=== PATIENT | female | born 1960 | race Caucasian/White ===

== ENCOUNTER 2017-07-10 13:07 | Observation (INO) ==
--- NOTE | 2017-07-10 13:34 | Emergency Department Note ---
Disposition Clinical Impression: Elevated d-dimer, Epigastric pain Chest pain Qualifiers: Chest pain type: unspecified Qualified Code(s): R07.9 - Chest pain, unspecified Disposition: Admitted As Inpatient Condition: Good Referrals: NONE,PCP [Primary Care Provider] - Forms: ED Satisfaction Letter General Adult HPI - General Chief complaint: ED Chest Pain Stated complaint: chest pain, abd pain Time Seen by Provider: 07/10/17 13:14 Source: patient Mode of arrival: ambulatory Limitations: no limitations Nursing Notes Reviewed: Yes Vital Signs Reviewed: Yes - History of Present Illness HPI Narrative: 56 y/o female who was visiting a relative in the ICU and developed epigastric abdominal pain along with dyspnea and chest pain radiating to the left arm. The pain is intermittent. She says she has a history of a heart attack, but she has not had a cath, or stents, or CABG. She says it was over 10 years ago. She says she developed CHF, but does not currently take any medications for it. She denies nausea/vomiting/diarrhea/constipation. No fever. No swelling or rashes. No hx of blood clots. She does not know her current medications. She does report history of cirrhosis of the liver. Location: lower extremity Pain Severity: moderate Pain Scale: 6 Consistency: intermittent Improves with: nothing Worsens with: nothing Associated symptoms: Reports: denies other symptoms Treatments Prior to Arrival: none - Related Data Home Medications Medication Instructions Recorded Confirmed Estrogen,Con/M-Progest Acet 1 each PO DAILY 04/05/15 04/05/15 [Prempro 0.3 mg-1.5 mg Tablet] Gabapentin [Neurontin] 1,200 mg PO TID 04/05/15 04/05/15 Levothyroxine [Synthroid] 50 mcg PO 0630 04/05/15 04/05/15 TraMADol [Ultram] 100 mg PO QID 04/05/15 04/05/15 Previous Rx's Medication Instructions Recorded Hydrocodone/Acetaminophen [[place] 1 each PO Q6H #10 tablet 04/05/15 5-325 Tablet] Ondansetron ODT [Zofran ODT] 4 mg PO Q6HR #10 tab.rapdis 07/07/15 Oxycodone HCl 5 mg PO Q6HR #15 capsule 07/07/15 Allergies Allergy/AdvReac Type Severity Reaction Status Date / Time aspirin [ASA] Allergy Hives Verified 07/07/15 16:08 Iodinated Contrast- Oral and Allergy Anaphylaxis Verified 07/10/17 13:12 IV Dye NSAIDS (Non-Steroidal AdvReac Difficulty Verified 04/05/15 01:09 Anti-Inflamma Breathing All systems ED: reviewed and negative except as stated. Constitutional: Denies: fever Eyes: Denies: vision change ENT ED: Denies: throat pain Cardiovascular: Reports: chest pain Respiratory: Reports: dyspnea. Denies: cough Gastrointestinal: Denies: abdominal pain Musculoskeletal: Denies: back pain Integumentary: Denies: rash Past Medical History - Past Medical History Medical history: Reports: arthritis, cancer, thyroid disease, other Surgical history: Reports: Psychiatric history: Reports: panic disorder - Social History Smoking Status: Former smoker Smokeless Tobacco Status: No Alcohol use: Reports: none Drug use: Reports: none Physical Exam - General General appearance: alert, in no apparent distress - Head Head exam: atraumatic - Eye Eye exam: Present: normal appearance, PERRL - ENT ENT exam: normal exam - Neck Neck exam: Present: normal inspection - Chest Chest inspection: Present: normal inspection - Respiratory Respiratory exam: Present: normal lung sounds bilaterally. Absent: respiratory distress - Cardiovascular Cardiovascular exam: Present: regular rate, normal rhythm - Abdominal Exam Abdominal exam: Present: soft, Non-Tender - Extremities Exam Extremities exam: Present: normal inspection - Back Exam Back exam: Present: normal inspection - Neurological Exam Neurological exam: Present: alert, oriented X3 - Skin Skin exam: Present: warm, dry Course Course Narrative: D dimer is elevated, however she has anaphylaxis to IV dye and a V/Q scan would need to be done in the morning after the reagent arrives. I will prophylactically give lovenox. In addition she has a mild lipase elevation with epigastric pain consistent with pancreatitis. LFT's are stable from where they have been. CT scan of the abdomen is negative for acute disease. No hx of ETOH use. Will admit for CP rule out and pancreatitis and r/o PE w/ V/Q scan in the ED. Spoke with Dr Ennis who accepted the patient for admission. Vital Signs Temperature 98.7 F 07/10/17 13:09 Pulse Rate 93 07/10/17 13:09 Respiratory Rate 16 07/10/17 13:09 Blood Pressure 125/83 07/10/17 13:09 O2 Sat by Pulse Oximetry 98 07/10/17 13:09 Temperature 98.7 F 07/10/17 13:09 Pulse Rate 87 07/10/17 18:39 Respiratory Rate 18 07/10/17 18:39 Blood Pressure 151/95 07/10/17 18:39 O2 Sat by Pulse Oximetry 95 07/10/17 18:39 Oxygen Delivery Oxygen Delivery Room Air Medical Decision Making - Medical Records Medical records reviewed: Yes I reviewed the patient's medical records. - Lab Data Lab results reviewed: Yes I reviewed the patient's lab results. Result diagrams: 07/10/17 13:35 07/10/17 13:35 Lab Results 07/10/17 07/10/17 07/10/17 Range/Units 13:35 13:35 13:35 WBC 6.4 (4.3-11.1) K/mcL RBC 3.49 L (3.82-4.97) M/mcL Hgb 10.9 L (11.5-15.4) g/dL Hct 34.1 L (35.3-44.9) % MCV 97.7 (83.0-100.0) fL MCH 31.2 (28.0-33.3) pg MCHC 32.0 (31.6-35.5) g/dL RDW 14.6 H (11.5-14.5) % Plt Count 112 L (140-400) K/mcL MPV 9.3 L (9.4-12.4) fL Immature Gran % 0.2 (0-4) % Seg Neutrophils % 28.7 % Lymphocytes % 50.9 % Monocytes % 11.5 % Eosinophils % 8.2 % Basophils % 0.5 % Neutrophils # 1.8 (1.6-8.9) K/mcL Lymphocytes # 3.2 (0.6-4.6) K/mcL Monocytes # 0.7 (0.0-1.3) K/mcL Eosinophils # 0.5 (0.0-0.6) K/mcL Basophils # 0.0 (0.0-0.2) K/mcL PT 12.8 H (9.4-12.1) Seconds INR 1.2 APTT 33.3 (26.0-36.0) Seconds D-Dimer 2491 H (0-500) ng/mLFEU Sodium (136-145) mEq/L Potassium (3.5-5.1) mEq/L Chloride (98-107) mEq/L Carbon Dioxide (23-29) mEq/L BUN (6-20) mg/dL Creatinine (0.60-1.20) mg/dL Est GFR ( Amer) (> 60) Est GFR (Non-Af Amer) (> 60) BUN/Creatinine Ratio (6-26) Glucose (70-105) mg/dL Calculated Osmolality (280-300) Lactic Acid (0.5-2.2) mmol/L Calcium (8.6-10.3) mg/dL Total Bilirubin (0.3-1.0) mg/dL Direct Bilirubin (0.0-0.2) mg/dL Indirect Bilirubin (0.0-1.2) mg/dL AST (13-39) Units/L ALT (7-52) Units/L Alkaline Phosphatase (34-104) Units/L Troponin I (< 0.04) ng/mL B-Natriuretic Peptide 27 (Less than 100) pg/mL Serum Total Protein (6.4-8.9) g/dL Albumin (3.5-5.7) g/dL Globulin (2.4-3.5) g/dL Albumin/Globulin Ratio (1.1-2.2) Lipase (11-82) Units/L Urine Color (Yellow) Urine Clarity (Clear) Urine pH (5.0-8.0) pH Units Ur Specific [place] (1.010-1.025) Urine Protein (Neg-Trace) mg/dL Urine Glucose (UA) (Normal) mg/dL Urine Ketones (Negative) mg/dL Urine Blood (Negative) Urine Nitrite (Negative) Urine Bilirubin (Negative) Urine Urobilinogen (Normal) mg/dL Ur Leukocyte Esterase (Negative) Ur Culture Indicated? (NO) 07/10/17 07/10/17 07/10/17 Range/Units 13:35 13:35 14:55 WBC (4.3-11.1) K/mcL RBC (3.82-4.97) M/mcL Hgb (11.5-15.4) g/dL Hct (35.3-44.9) % MCV (83.0-100.0) fL MCH (28.0-33.3) pg MCHC (31.6-35.5) g/dL RDW (11.5-14.5) % Plt Count (140-400) K/mcL MPV (9.4-12.4) fL Immature Gran % (0-4) % Seg Neutrophils % % Lymphocytes % % Monocytes % % Eosinophils % % Basophils % % Neutrophils # (1.6-8.9) K/mcL Lymphocytes # (0.6-4.6) K/mcL Monocytes # (0.0-1.3) K/mcL Eosinophils # (0.0-0.6) K/mcL Basophils # (0.0-0.2) K/mcL PT (9.4-12.1) Seconds INR APTT (26.0-36.0) Seconds D-Dimer (0-500) ng/mLFEU Sodium 137 (136-145) mEq/L Potassium 3.8 (3.5-5.1) mEq/L Chloride 108 H (98-107) mEq/L Carbon Dioxide 25 (23-29) mEq/L BUN 14 (6-20) mg/dL Creatinine 0.70 (0.60-1.20) mg/dL Est GFR ( Amer) > 60 (> 60) Est GFR (Non-Af Amer) > 60 (> 60) BUN/Creatinine Ratio 20 (6-26) Glucose 105 (70-105) mg/dL Calculated Osmolality 285 (280-300) Lactic Acid (0.5-2.2) mmol/L Calcium 9.0 (8.6-10.3) mg/dL Total Bilirubin (0.3-1.0) mg/dL Direct Bilirubin (0.0-0.2) mg/dL Indirect Bilirubin (0.0-1.2) mg/dL AST (13-39) Units/L ALT (7-52) Units/L Alkaline Phosphatase (34-104) Units/L Troponin I < 0.03 (< 0.04) ng/mL B-Natriuretic Peptide (Less than 100) pg/mL Serum Total Protein (6.4-8.9) g/dL Albumin (3.5-5.7) g/dL Globulin (2.4-3.5) g/dL Albumin/Globulin Ratio (1.1-2.2) Lipase 127 H (11-82) Units/L Urine Color Yellow (Yellow) Urine Clarity Clear (Clear) Urine pH 5.5 (5.0-8.0) pH Units Ur Specific [place] 1.024 (1.010-1.025) Urine Protein Negative (Neg-Trace) mg/dL Urine Glucose (UA) Normal (Normal) mg/dL Urine Ketones Negative (Negative) mg/dL Urine Blood Negative (Negative) Urine Nitrite Negative (Negative) Urine Bilirubin Negative (Negative) Urine Urobilinogen Normal (Normal) mg/dL Ur Leukocyte Esterase Negative (Negative) Ur Culture Indicated? NO (NO) 07/10/17 07/10/17 Range/Units 14:59 14:59 WBC (4.3-11.1) K/mcL RBC (3.82-4.97) M/mcL Hgb (11.5-15.4) g/dL Hct (35.3-44.9) % MCV (83.0-100.0) fL MCH (28.0-33.3) pg MCHC (31.6-35.5) g/dL RDW (11.5-14.5) % Plt Count (140-400) K/mcL MPV (9.4-12.4) fL Immature Gran % (0-4) % Seg Neutrophils % % Lymphocytes % % Monocytes % % Eosinophils % % Basophils % % Neutrophils # (1.6-8.9) K/mcL Lymphocytes # (0.6-4.6) K/mcL Monocytes # (0.0-1.3) K/mcL Eosinophils # (0.0-0.6) K/mcL Basophils # (0.0-0.2) K/mcL PT (9.4-12.1) Seconds INR APTT (26.0-36.0) Seconds D-Dimer (0-500) ng/mLFEU Sodium (136-145) mEq/L Potassium (3.5-5.1) mEq/L Chloride (98-107) mEq/L Carbon Dioxide (23-29) mEq/L BUN (6-20) mg/dL Creatinine (0.60-1.20) mg/dL Est GFR ( Amer) (> 60) Est GFR (Non-Af Amer) (> 60) BUN/Creatinine Ratio (6-26) Glucose (70-105) mg/dL Calculated Osmolality (280-300) Lactic Acid 0.7 (0.5-2.2) mmol/L Calcium (8.6-10.3) mg/dL Total Bilirubin 0.4 (0.3-1.0) mg/dL Direct Bilirubin 0.1 (0.0-0.2) mg/dL Indirect Bilirubin 0.3 (0.0-1.2) mg/dL AST 73 H (13-39) Units/L ALT 62 H (7-52) Units/L Alkaline Phosphatase 119 H (34-104) Units/L Troponin I (< 0.04) ng/mL B-Natriuretic Peptide (Less than 100) pg/mL Serum Total Protein 7.1 (6.4-8.9) g/dL Albumin 3.8 (3.5-5.7) g/dL Globulin 3.3 (2.4-3.5) g/dL Albumin/Globulin Ratio 1.2 (1.1-2.2) Lipase (11-82) Units/L Urine Color (Yellow) Urine Clarity (Clear) Urine pH (5.0-8.0) pH Units Ur Specific [place] (1.010-1.025) Urine Protein (Neg-Trace) mg/dL Urine Glucose (UA) (Normal) mg/dL Urine Ketones (Negative) mg/dL Urine Blood (Negative) Urine Nitrite (Negative) Urine Bilirubin (Negative) Urine Urobilinogen (Normal) mg/dL Ur Leukocyte Esterase (Negative) Ur Culture Indicated? (NO) - Radiology Data Radiology results reviewed: Yes I reviewed the patient's radiology results. - EKG Data EKG #1 EKG attestation: Yes I reviewed and interpreted this EKG. EKG shows normal: sinus rhythm Rate: normal Rhythm: NSR Interpretation: unchanged when compared to prior tracing (date), other (LVH)
[2017-07-10 13:47] LABS: Basophils % 0.5 %; Eosinophils # 0.5 K/mcL (0.0-0.6); Eosinophils % 8.2 %; Hematocrit 34.1 % (35.3-44.9); Hemoglobin 10.9 g/dL (11.5-15.4); Immature Granulocytes % 0.2 % (0-4); Lymphocytes # 3.2 K/mcL (0.6-4.6); Lymphocytes % 50.9 %; Mean Corpuscular Hemoglobin 31.2 pg (28.0-33.3); Mean Corpuscular Volume 97.7 fL (83.0-100.0); Mean Platelet Volume 9.3 fL (9.4-12.4); Monocytes # 0.7 K/mcL (0.0-1.3); Monocytes % 11.5 %; Neutrophils # 1.8 K/mcL (1.6-8.9); Platelet Count 112 K/mcL (140-400); Red Blood Count 3.49 M/mcL (3.82-4.97); Red Cell Distribution Width 14.6 % (11.5-14.5); Segmented Neutrophils % 28.7 %
[2017-07-10 13:53] LABS: INR 1.2; Prothrombin Time 12.8 Seconds (9.4-12.1)
[2017-07-10 13:55] LABS: Activated Partial Thrombo Time 33.3 Seconds (26.0-36.0)
[2017-07-10 14:05] LABS: BUN/Creatinine Ratio 20 (6-26); Blood Urea Nitrogen 14 mg/dL (6-20); Carbon Dioxide 25 mEq/L (23-29); Chloride 108 mEq/L (98-107); Glucose 105 mg/dL (70-105); Lipase 127 Units/L (11-82); Osmolality,Calculated 285 (280-300); Potassium 3.8 mEq/L (3.5-5.1); Sodium 137 mEq/L (136-145); eGFR For African Americans > 60 (> 60); eGFR For Non-African Americans > 60 (> 60)
[2017-07-10] MEDS ORDERED: *HR* Nalbuphine 20 MG/ML AMPUL IVP ONE ×2 (14:15→15:30)
--- NOTE | 2017-07-10 14:19 | Emergency Department Note ---
START Narrative - START START: I examined this patient and my medical decision-making was reviewed with the Resident Physician. I agree with the documented findings, disposition and treatment plan as described except to the extent set forth below. 56 year old female presents to the eD with complaints of chest and abdominal pain in the epigrastric and lower chest and states she has had nausea associated with it. She is a vague historian and has multple postive ROS and statest that she no lnoger has a galbladder. Our concern is for PE vs pancreatitis due to elevated D-dimer and lipase. WE will treat her with pain medications and do a VQ scan to rule out PE
[2017-07-10 15:03] LABS: Bilirubin,Urine Negative (Negative); Blood,Urine Negative (Negative); Clarity,Urine Clear (Clear); Color,Urine Yellow (Yellow); Glucose,Urine (UA) Normal (Normal); Ketones,Urine Negative (Negative); Leukocyte Esterase,Urine Negative (Negative); Nitrite,Urine Negative (Negative); PH,Urine 5.5 pH Units (5.0-8.0); Protein,Urine Negative (Neg-Trace); Specific Gravity,Urine 1.024 (1.010-1.025); Urobilinogen,Urine Normal (Normal)
[2017-07-10 15:18] LABS: Albumin 3.8 g/dL (3.5-5.7); Bilirubin,Direct 0.1 mg/dL (0.0-0.2); Bilirubin,Indirect 0.3 mg/dL (0.0-1.2); Bilirubin,Total 0.4 mg/dL (0.3-1.0)
[2017-07-10 15:24] LABS: Albumin/Globulin Ratio 1.2 (1.1-2.2); Globulin 3.3 g/dL (2.4-3.5); Total Protein 7.1 g/dL (6.4-8.9)
[2017-07-10] MEDS ORDERED: Nitroglycerin 0.4 MG TAB.SUBL SL PRN (15:29)
[2017-07-10] MEDS ORDERED: *HR* Enoxaparin 80 MG/0.8 ML SYRINGE SQ STA (19:29)
[2017-07-10] MEDS ORDERED: Ondansetron 4 MG/2 ML VIAL IVP ONE ×2 (19:30→20:09)
[2017-07-10] MEDS ORDERED: Naloxone 0.4 MG/ML INJ IVP PRN (20:08)
[2017-07-10] MEDS ORDERED: *HR* Promethazine 25 MG/ML VIAL IVP PRN (20:08)
[2017-07-10] MEDS ORDERED: *HR* FentaNYL (PF) 100 MCG/2 ML VIAL IVP ONE (20:09)
[2017-07-10] MEDS ORDERED: Pantoprazole 40 MG in 0.9 % Sodium Chloride 50 ML IVPB ONE (20:11)
--- NOTE | 2017-07-10 20:17 | Internal Med History&Physical ---
Date of Encounter: 07/10/17 Time of Encounter: 20:12 Assessment and Plan (1) Epigastric pain Current visit: Yes Status: Acute suspect to be gastritis - will empirically treat with PPI, carafate outpatient GI follow up IVF, clears overnight and progress in a.m as tolerated lower suspicion for cardiac CP - trend trop, tele (2) Diarrhea Current visit: Yes Status: Acute uncertain etiology send stool studies monitor inpatient Qualifiers: Diarrhea type: unspecified type Qualified Code(s): R19.7 - Diarrhea, unspecified (3) Elevated d-dimer Current visit: Yes Status: Acute ED concerned for PE and requested admit for eval V/Q scan, doppler LE pending lovenox empirically for now until above can be ruled out My clinical suspicion though is perhaps lower (4) Hypothyroid Current visit: Yes Status: Acute Qualifiers: Hypothyroidism type: acquired Qualified Code(s): E03.9 - Hypothyroidism, unspecified (5) Medication adverse effect Current visit: Yes Status: Acute record showed gabapentin 1200 TID. This is too high of dose and has high potential for bad effects. Dose adjusted Qualifiers: Encounter type: initial encounter Qualified Code(s): T88.7XXA - Unspecified adverse effect of drug or medicament, initial encounter Internal Medicine - H&P: HPI Chief complaint: abdo, chest pain,diarrhea History of present illness: Ms. Lorenz is a 56 year old female who presents with subacute onset non-specific chest, abdo pain. ED performed D-dimer screen that was elevated and requested admit to the hospital for VTE r/o and rec starting empiric lovenox. She tells me of ongoing 3 weeks of intermittent upper abdominal pain that radiates across the upper abdo, into the chest and into the left side of chest. Rate 10/10 on occasion. Comes on and off. She tells me that food makes it worse. She also noted watery diarrhea x 1 week - unknown frequency since she wears pads. Diarrhea is green with terrible odor. On review, she tells me that she has colon cancer s/p resection 2 years ago and is in remission. She also reports abdominal hernia that is seen on CT and is uncomplicated. EKG personally reviewed with rate 92, NSR CT/CT abd pelvis wo no iv no oral IMPRESSION: Findings of cirrhosis and underlying portal hypertension again appreciated. Diverticulosis with no definite evidence of acute diverticulitis, however this is limited in evaluation in the setting of ascites. Large ventral hernia containing loops of large and small bowel. There is no evidence of obstruction. Gallbladder is not visualized and may be surgically absent. XR/XR chest 1V portable IMPRESSION: No acute abnormality. Past Med Surg Social Fam HX - Past Medical History Medical history: arthritis, cancer, thyroid disease, other Psychiatric history: panic disorder - Past Surgical History Surgical History: - Social History Smoking Status: Former smoker Smokeless Tobacco Status: No Alcohol use: none Drug use: none Internal Medicine - H&P: Meds Estrogen,Con/M-Progest Acet [Prempro 0.3 mg-1.5 mg Tablet] 1 each PO DAILY 04/05 [History] Gabapentin [Neurontin] 1,200 mg PO TID 04/05/15 [History] Hydrocodone/Acetaminophen [[place] 5-325 Tablet] 1 each PO Q6H #10 tablet [Rx] Levothyroxine [Synthroid] 50 mcg PO 0630 04/05/15 [History] TraMADol [Ultram] 100 mg PO QID 04/05/15 [History] Ondansetron ODT [Zofran ODT] 4 mg PO Q6HR #10 tab.rapdis 07/07/15 [Rx] Oxycodone HCl 5 mg PO Q6HR #15 capsule 07/07/15 [Rx] 3 Allergy/AdvReac Type Severity Reaction Status Date / Time aspirin [ASA] Allergy Hives Verified 07/07/15 16:08 Iodinated Contrast- Oral and Allergy Anaphylaxis Verified 07/10/17 13:12 IV Dye NSAIDS (Non-Steroidal AdvReac Difficulty Verified 04/05/15 01:09 Anti-Inflamma Breathing All Systems PM: A 10-system review of systems was performed and is negative for pertinent findings except as documented above in the HPI. Review of systems: ROS 14 point review of systems reviewed as best as possible given presentation. Pertinent positive or negative as per HPI or otherwise reviewed as negative - Constitutional Vitals: Temp Pulse Resp BP Pulse Ox 98.7 F 87 18 151/95 95 07/10/17 13:09 07/10/17 18:39 07/10/17 18:39 07/10/17 18:39 07/10/17 18:39 Exam: General - AAO x 3 Psych - Appropriate affect/speech. No agitation Eyes - TAYLOR. Eye lids intact. No scleral icterus Heart - Sinus. RRR. S1 and S2 present. No added HS/murmurs appreciated. No elevated JVD appreciated. Lung - Adequate air entry b/l, No crackles/wheezes appreciated GI - Upper abdo discomfort. No G/R. No hepatosplenomegaly/ascites. Hernia palpable - No CVA/suprapubic tenderness or palpable bladder distension Skin - Intact. No rash/petechiae/ecchymosis. Warm extremities. +1 b/l LE edema Internal Med - H&P Results - Labs CBC & Chem 7: 07/10/17 13:35 07/10/17 13:35 Labs: Short CBC 07/10/17 Range/Units 13:35 WBC 6.4 (4.3-11.1) K/mcL Hgb 10.9 L (11.5-15.4) g/dL Hct 34.1 L (35.3-44.9) % Plt Count 112 L (140-400) K/mcL Neutrophils # 1.8 (1.6-8.9) K/mcL BMP 07/10/17 13:35 Sodium 137 Potassium 3.8 Chloride 108 H Carbon Dioxide 25 BUN 14 Creatinine 0.70 Glucose 105 Calcium 9.0 Cardiac Enzymes 07/10/17 Range/Units 13:35 Troponin I < 0.03 (< 0.04) ng/mL Liver Function 07/10/17 Range/Units 14:59 Total Bilirubin 0.4 (0.3-1.0) mg/dL Direct Bilirubin 0.1 (0.0-0.2) mg/dL AST 73 H (13-39) Units/L ALT 62 H (7-52) Units/L Alkaline Phosphatase 119 H (34-104) Units/L Albumin 3.8 (3.5-5.7) g/dL Urine 07/10/17 Range/Units 14:55 Urine Color Yellow (Yellow) Urine Clarity Clear (Clear) Urine pH 5.5 (5.0-8.0) pH Units Ur Specific [place] 1.024 (1.010-1.025) Urine Protein Negative (Neg-Trace) mg/dL Urine Glucose (UA) Normal (Normal) mg/dL - Impressions ITS Impressions Chest X-Ray 07/10/17 13:27 IMPRESSION: No acute abnormality. D/ / 07/10/2017 14:10:54 Daniel Montalvo MD / daniel Interpreting Provider: Daniel Monatlvo MD Abdomen/Pelvis CT 07/10/17 13:30 IMPRESSION: Findings of cirrhosis and underlying portal hypertension again appreciated. Diverticulosis with no definite evidence of acute diverticulitis, however this is limited in evaluation in the setting of ascites. Large ventral hernia containing loops of large and small bowel. There is no evidence of obstruction. Gallbladder is not visualized and may be surgically absent. D/ / 07/10/2017 14:50:06 Javier Cruz MD / daniel Interpreting Provider: Javier Cruz MD
[2017-07-10] MEDS ORDERED: Pantoprazole 40 MG VIAL IVP ONE (21:30)
[2017-07-10] MEDS: Ringers Solution, Lactated 1,000 ML IVC SCH (21:49)
[2017-07-10] MEDS: *HR* Morphine 2 MG/ML SYRINGE IVP PRN (21:52)
[2017-07-10] MEDS: lamoTRIgine 100 MG TABLET PO SCH (22:19)
[2017-07-10] MEDS: Gabapentin 300 MG CAPSULE PO SCH (22:19)
[2017-07-10] MEDS: Sucralfate 1 GM TABLET PO SCH (22:19)
[2017-07-10] MEDS: Pantoprazole 40 MG VIAL IVP SCH (22:31)
[2017-07-10] MEDS: clonazePAM 0.5 MG TABLET PO SCH (23:28)
[2017-07-11] MEDS: *HR* Morphine 2 MG/ML SYRINGE IVP PRN ×2 (01:27→06:00)
[2017-07-11 02:17] LABS: Basophils % 0.5 %; Eosinophils # 0.5 K/mcL (0.0-0.6); Eosinophils % 7.1 %; Hemoglobin 10.4 g/dL (11.5-15.4); Immature Granulocytes % 0.2 % (0-4); Immature Platelets 2.2 % (1.1-6.1); Lymphocytes # 3.5 K/mcL (0.6-4.6); Mean Corpuscular HGB Conc 31.5 g/dL (31.6-35.5); Mean Corpuscular Hemoglobin 31.2 pg (28.0-33.3); Mean Corpuscular Volume 99.1 fL (83.0-100.0); Mean Platelet Volume 9.1 fL (9.4-12.4); Monocytes # 0.8 K/mcL (0.0-1.3); Monocytes % 12.4 %; Neutrophils # 1.8 K/mcL (1.6-8.9); Platelet Count 103 K/mcL (140-400); Red Blood Count 3.33 M/mcL (3.82-4.97); Red Cell Distribution Width 14.6 % (11.5-14.5); Segmented Neutrophils % 26.8 %
[2017-07-11 02:41] LABS: Alanine Aminotransferase 60 Units/L (7-52); Albumin 3.6 g/dL (3.5-5.7); Albumin/Globulin Ratio 1.1 (1.1-2.2); Alkaline Phosphatase 102 Units/L (34-104); Aspartate Amino Transferase 71 Units/L (13-39); BUN/Creatinine Ratio 15 (6-26); Bilirubin,Total 0.6 mg/dL (0.3-1.0); Blood Urea Nitrogen 11 mg/dL (6-20); Calcium 8.6 mg/dL (8.6-10.3); Carbon Dioxide 25 mEq/L (23-29); Chloride 110 mEq/L (98-107); Globulin 3.3 g/dL (2.4-3.5); Glucose 93 mg/dL (70-105); Magnesium 1.7 mg/dL (1.6-2.6); Osmolality,Calculated 283 (280-300); Potassium 3.8 mEq/L (3.5-5.1); Sodium 137 mEq/L (136-145); Total Protein 6.9 g/dL (6.4-8.9); eGFR For African Americans > 60 (> 60); eGFR For Non-African Americans > 60 (> 60)
[2017-07-11] MEDS: Ondansetron 4 MG/2 ML VIAL IVP PRN ×3 (05:59→22:33)
[2017-07-11] MEDS ORDERED: *HR* Enoxaparin 80 MG/0.8 ML SYRINGE SQ ONE (08:00)
[2017-07-11] MEDS: Sucralfate 1 GM TABLET PO SCH ×4 (08:29→20:34)
[2017-07-11] MEDS: Pantoprazole 40 MG VIAL IVP SCH ×2 (08:29→20:33)
[2017-07-11] MEDS: clonazePAM 0.5 MG TABLET PO SCH ×2 (08:29→20:34)
[2017-07-11] MEDS: Gabapentin 300 MG CAPSULE PO SCH ×3 (08:29→20:33)
[2017-07-11] MEDS ORDERED: *HR* OxyCODONE Immed Rel 5 MG TABLET PO PRN (10:21)
[2017-07-11] MEDS: Ringers Solution, Lactated 1,000 ML IVC SCH (11:05)
[2017-07-11] MEDS ORDERED: HYDROMORPHONE RC PRN (11:21)
--- NOTE | 2017-07-11 11:58 | General Surgery Consult Note ---
<Leatha Chavez - Last Filed: 07/11/17 17:42> Date of Encounter: 07/11/17 Time of Encounter: 11:57 Assessment and Plan (1) Epigastric pain Current Visit: Yes Status: Acute 56 Y with history of colorectal cancer s/p right hemicolectomy is noted presenting with nausea x 1 month, epigastric abdominal pain. CT demonstrated large hernia sac extending anteriorly and inferiorly containing loops of large and small bowel, with small amount of free fluid noted within the hernia sac and mild stranding noted diffusely within the mesentery. -Dr. Maloney reviewed CT: There appears to be no acute surgical problem or obstruction with CT -Recommend evaluation at [facility] during convalescent period for repair -Recommend GI eval of ascites and cirrhosis -Will check CEA History of Present Illness Consult date: 07/11/17 Reason for consult: abdominal pain Requesting physician: Carolyn Roberson History of present illness: 56 y F with PMHx of colorectal cancer s/p hemicolectomy, myocardial infarction approx. 10 years ago, thyroid disease, TIA presents for chronic nausea x1 month , followed by a "couple of weeks" of R and L lateral abdominal pain, now diffuse in epigastric area. Hospital note states she was visiting a relative in the ICU and developed epigastric abdominal pain along with dyspnea and chest pain radiating to the left arm, which is how she initially presented to ED. Associated symptoms with nausea : an episode of emesis with an appearance of "green-pea soup mixed with water" two weeks ago. No episode of emesis since then , but frequent heaving almost daily. She denies more than 3 stools/day, however does endorse that each time she eats, she will have a sensation of urgent urge to defecate, resulting in fecal mishap appearing as "green-colored" stool. When she stops eating solid foods, she has no issues with defecation. She has not passed any stools today, as of approx noon time. No pruritus. Additionally, she has issues with drinking liquids, citing that when she even drinks 2 glasses of milk, she feels like the fluids "gets up to my rib cage" and the fluid-build up leads to a sensation of "feeling like I'm drowning". Pt has suffered from a hernia following resection for colorectal cancer (Stage II) two years ago. She states that is has significantly increased in size in past three weeks, with an increase in pain. Nothing relieves the pain, but pain medication. Pt also feels that the hernia is cosmetically very distressing to her. Surgical Hx: Hemicolectomy ([facility]) - 2 years ago Past Med Surg Social Fam HX - Past Medical History Medical history: arthritis, cancer, cirrhosis, myocardial infarction, thyroid disease, TIA, other Psychiatric history: panic disorder - Past Surgical History Surgical History: , orthopedic, other - Social History Smoking Status: Current every day smoker Smokeless Tobacco Status: No Alcohol use: none Drug use: none Medications and Allergies Levothyroxine [Synthroid] 50 mcg PO 0630 04/05/15 [History] Docusate Sodium [Stool Softener] 100 mg PO DAILY 07/11/17 [History] Gabapentin [Neurontin] 600 mg PO TID 07/11/17 [History] Mirtazapine [Remeron] 15 mg PO HS 07/11/17 [History] Ondansetron [Zofran] 8 mg PO Q6H 07/11/17 [History] Pantoprazole Sodium 40 mg PO DAILY 07/11/17 [History] Paroxetine [Paxil] 20 mg PO TID 07/11/17 [History] Propranolol [Inderal] 20 mg PO TID 07/11/17 [History] Ranitidine HCl [Heartburn Relief] 150 mg PO BID 07/11/17 [History] Spironolactone [Aldactone] 25 mg PO DAILY 07/11/17 [History] clonazePAM [Klonopin] 0.5 mg PO BID 07/11/17 [History] lamoTRIgine [Lamotrigine] 200 mg PO BID 07/11/17 [History] rOPINIRole [Requip] 0.25 mg PO DAILY 07/11/17 [History] 3 Allergy/AdvReac Type Severity Reaction Status Date / Time aspirin [ASA] Allergy Hives Verified 07/07/15 16:08 Iodinated Contrast- Oral and Allergy Anaphylaxis Verified 07/10/17 13:12 IV Dye NSAIDS (Non-Steroidal AdvReac Difficulty Verified 04/05/15 01:09 Anti-Inflamma Breathing Review of Systems All systems PM: As documented above in the HPI. General Surgery Exam Initial Vital Signs Temp Pulse Resp BP Pulse Ox 98.7 F 93 16 125/83 98 07/10/17 13:09 07/10/17 13:09 07/10/17 13:09 07/10/17 13:09 07/10/17 13:09 - General physical appearance moderate distress, moderate pain - Respiratory clear to auscultation - Cardiovascular Cardiovascular exam: Present: RRR, no murmurs/rubs/gallops - Abdomen Abdomen general surgery: Present: bowel sounds present, soft, tender Abdominal Tenderness: Present: epigastic (evident hernia in LLQ ) Exam Initial Vital Signs Temp Pulse Resp BP Pulse Ox 98.7 F 93 16 125/83 98 07/10/17 13:09 07/10/17 13:09 07/10/17 13:09 07/10/17 13:09 07/10/17 13:09 Results - Labs 07/11/17 02:10 07/11/17 02:10 Abnormal lab results RBC 3.33 M/mcL (3.82-4.97) L 07/11/17 02:10 Hgb 10.4 g/dL (11.5-15.4) L 07/11/17 02:10 Hct 33.0 % (35.3-44.9) L 07/11/17 02:10 MCHC 31.5 g/dL (31.6-35.5) L 07/11/17 02:10 RDW 14.6 % (11.5-14.5) H 07/11/17 02:10 Plt Count 103 K/mcL (140-400) L 07/11/17 02:10 MPV 9.1 fL (9.4-12.4) L 07/11/17 02:10 PT 12.8 Seconds (9.4-12.1) H 07/10/17 13:35 D-Dimer 2491 ng/mLFEU (0-500) H 07/10/17 13:35 Chloride 110 mEq/L (98-107) H 07/11/17 02:10 AST 71 Units/L (13-39) H 07/11/17 02:10 ALT 60 Units/L (7-52) H 07/11/17 02:10 Diabetes panel 07/11/17 Range/Units 02:10 Sodium 137 (136-145) mEq/L Potassium 3.8 (3.5-5.1) mEq/L Chloride 110 H (98-107) mEq/L Carbon Dioxide 25 (23-29) mEq/L BUN 11 (6-20) mg/dL Creatinine 0.71 (0.60-1.20) mg/dL Glucose 93 (70-105) mg/dL Calcium 8.6 (8.6-10.3) mg/dL AST 71 H (13-39) Units/L ALT 60 H (7-52) Units/L Alkaline Phosphatase 102 (34-104) Units/L Albumin 3.6 (3.5-5.7) g/dL Calcium panel 07/11/17 Range/Units 02:10 Calcium 8.6 (8.6-10.3) mg/dL Albumin 3.6 (3.5-5.7) g/dL Pituitary panel 07/11/17 Range/Units 02:10 Sodium 137 (136-145) mEq/L Potassium 3.8 (3.5-5.1) mEq/L Chloride 110 H (98-107) mEq/L Carbon Dioxide 25 (23-29) mEq/L BUN 11 (6-20) mg/dL Creatinine 0.71 (0.60-1.20) mg/dL Glucose 93 (70-105) mg/dL Calcium 8.6 (8.6-10.3) mg/dL Adrenal panel 07/11/17 Range/Units 02:10 Sodium 137 (136-145) mEq/L Potassium 3.8 (3.5-5.1) mEq/L Chloride 110 H (98-107) mEq/L Carbon Dioxide 25 (23-29) mEq/L BUN 11 (6-20) mg/dL Creatinine 0.71 (0.60-1.20) mg/dL Glucose 93 (70-105) mg/dL Calcium 8.6 (8.6-10.3) mg/dL Total Bilirubin 0.6 (0.3-1.0) mg/dL AST 71 H (13-39) Units/L ALT 60 H (7-52) Units/L Alkaline Phosphatase 102 (34-104) Units/L Albumin 3.6 (3.5-5.7) g/dL All other labs normal. - Imaging Additional studies: Chest X-Ray 07/10/17 13:27 IMPRESSION: No acute abnormality. D/ / 07/10/2017 14:10:54 Daniel Montalvo MD / daniel Interpreting Provider: Daniel Montalvo MD Abdomen/Pelvis CT 07/10/17 13:30 IMPRESSION: Findings of cirrhosis and underlying portal hypertension again appreciated. Diverticulosis with no definite evidence of acute diverticulitis, however this is limited in evaluation in the setting of ascites. Large ventral hernia containing loops of large and small bowel. There is no evidence of obstruction. Gallbladder is not visualized and may be surgically absent. D/ / 07/10/2017 14:50:06 Javier Cruz MD / daniel Interpreting Provider: Javier Cruz MD cc: Samy Morales; PCP NO; Carolyn Roberson; ~ EXAMINATION: NUCLEAR MEDICINE VENTILATION PERFUSION SCAN. 07/11/2017 TECHNIQUE: 34.8 millicuries aerosolized Tc99m DTPA was administered via mask prior to planar imaging of the lungs in multiple projections. Then, 5.5 millicuries of Tc 99m MAA was administered intravenously prior to planar imaging of the lungs in similar projections. COMPARISON: Chest radiograph 07/10/2017. HISTORY: ORDERING SYSTEM PROVIDED HISTORY: dyspnea, D-dimer elevated FINDINGS: PERFUSION: Distribution of radiotracer is homogenous. No segmental defects identified. VENTILATION: Ventilation images are unremarkable. CHEST RADIOGRAPH: No focal areas of consolidation or significant effusions on recent chest radiograph. NM/NM pul vent and perfuse IMPRESSION: Low Probability for Pulmonary Embolus. D/ / Jesus Faith MD / Jesus Faith MD Interpreting Provider: Jesus Faith MD Consult Discharge Plan - Plan Referrals: NONE,PCP [Primary Care Provider] - <Micha Maloney - Last Filed: 07/12/17 06:58> Date of Encounter: 07/11/17 Review of Systems All systems PM: A 10-system review of systems was performed and is negative for pertinent findings except as documented above in the HPI. General Surgery Exam Initial Vital Signs Temp Pulse Resp BP Pulse Ox 98.7 F 93 16 125/83 98 07/10/17 13:09 07/10/17 13:09 07/10/17 13:09 07/10/17 13:09 07/10/17 13:09 Exam Initial Vital Signs Temp Pulse Resp BP Pulse Ox 98.7 F 93 16 125/83 98 07/10/17 13:09 07/10/17 13:09 07/10/17 13:09 07/10/17 13:09 07/10/17 13:09 Results - Labs 07/12/17 04:18 07/12/17 04:18 Abnormal lab results RBC 3.22 M/mcL (3.82-4.97) L 07/12/17 04:18 Hgb 10.1 g/dL (11.5-15.4) L 07/12/17 04:18 Hct 31.4 % (35.3-44.9) L 07/12/17 04:18 Plt Count 83 K/mcL (140-400) L 07/12/17 04:18 PT 12.8 Seconds (9.4-12.1) H 07/10/17 13:35 D-Dimer 2491 ng/mLFEU (0-500) H 07/10/17 13:35 AST 71 Units/L (13-39) H 07/11/17 02:10 ALT 60 Units/L (7-52) H 07/11/17 02:10 Diabetes panel 07/12/17 Range/Units 04:18 Sodium 137 (136-145) mEq/L Potassium 3.7 (3.5-5.1) mEq/L Chloride 106 (98-107) mEq/L Carbon Dioxide 28 (23-29) mEq/L BUN 7 (6-20) mg/dL Creatinine 0.66 (0.60-1.20) mg/dL Glucose 82 (70-105) mg/dL Calcium 8.6 (8.6-10.3) mg/dL Calcium panel 07/12/17 Range/Units 04:18 Calcium 8.6 (8.6-10.3) mg/dL Pituitary panel 07/12/17 Range/Units 04:18 Sodium 137 (136-145) mEq/L Potassium 3.7 (3.5-5.1) mEq/L Chloride 106 (98-107) mEq/L Carbon Dioxide 28 (23-29) mEq/L BUN 7 (6-20) mg/dL Creatinine 0.66 (0.60-1.20) mg/dL Glucose 82 (70-105) mg/dL Calcium 8.6 (8.6-10.3) mg/dL Adrenal panel 07/12/17 Range/Units 04:18 Sodium 137 (136-145) mEq/L Potassium 3.7 (3.5-5.1) mEq/L Chloride 106 (98-107) mEq/L Carbon Dioxide 28 (23-29) mEq/L BUN 7 (6-20) mg/dL Creatinine 0.66 (0.60-1.20) mg/dL Glucose 82 (70-105) mg/dL Calcium 8.6 (8.6-10.3) mg/dL All other labs normal. - Attending Attestation The patient is sen and evaluated. abdomen is soft. No pain. Large incisional hernia with loss of domain. No evidence of obstruction by ct. Recommend convelescent consideration for repair by her primary surgeon No acute surgery necessary Micha Maloney MD FACS I examined this patient and my medical decision-making was reviewed with the Resident Physician. I agree with the documented findings, disposition and treatment plan as described except to the extent set forth below.
[2017-07-11] MEDS ORDERED: *HR* HYDROmorphone 2 MG TABLET PO PRN (13:28)
[2017-07-11] MEDS ORDERED: *HR* HYDROmorphone 2 MG/ML SYRINGE IVP PRN (15:26)
[2017-07-11] MEDS ORDERED: MORPHINE SUL Oral CONC 10 MG/0.5 ML ORAL.SYG SL PRN (16:11)
--- NOTE | 2017-07-11 16:58 | Internal Med Progress Note ---
Date of Encounter: 07/11/17 Time of Encounter: 10:45 - Assessment and plan (1) Epigastric pain Current Visit: Yes Status: Acute Assessment and plan: presented with ABD pain for 2 weeks. Lipase 128 and normalized. History remote Kaylene. ABD CT showed cirrhosis with portal hypertension, diverticulosis with no definite evidence of acute diverticulitis, large ventral hernia containing loops of large and small bowel, no evidence of obstruction. Of note the CT was limited in evaluation due to ascites. Evaluated by general surgery who did not feel there was an acute surgical need at this time although surgery did recommend eventual follow-up with [facility] for hernia repair. Pain control has been an issue with shortage of IV Dilaudid and morphine. Discussed with pharmacy multiple times; final pain regimen will consist of PRN OxyIR and sublingual morphine. Keep NPO as long as she is having abdominal pain. CEA pending. (2) Colon cancer Current Visit: Yes Status: Acute Assessment and plan: per. S/[facility]. ADD CT with evidence of ventral hernia. Will need to follow-up at [facility] for surgical repair. Qualifiers: Colon location: unspecified part of colon Qualified Code(s): C18.9 - Malignant neoplasm of colon, unspecified (3) Anxiety Current Visit: Yes Status: Acute Assessment and plan: per hx. 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 Suspect this is contributing to uncontrolled pain. Continue home Xanax. One-time dose IV Ativan (4) Cirrhosis Current Visit: Yes Status: Acute Assessment and plan: ABD CT with evidence of cirrhosis and portal hypertension. RUQ US pending to assess ascites. Add BB for portal hypertension. GI consult Qualifiers: Hepatic cirrhosis type: other cirrhosis Qualified Code(s): K74.69 - Other cirrhosis of liver (5) DVT prophylaxis Current Visit: Yes Status: Acute Assessment and plan: heparin - Subjective Interval history: Seen and examined at bedside. Patient is new to me, information obtained from chart review and patient report. She is quite anxious all my exam tearful and crying. She is reports uncontrolled abdominal pain as well. Pain regimen has been changed multiple times throughout the day due to shortage of IV Dilaudid and morphine. Patient is agreeable to try by mouth Dilaudid alternating with by mouth OxyIR. She is attempted to leave AGAINST MEDICAL ADVICE multiple times today and required multiple visits with reassurance. She is agreeable to stay overnight for further monitoring and GI consultation in the morning. - Constitutional Vitals: Temp Pulse Resp BP Pulse Ox 98.1 F 77 16 136/85 97 07/11/17 16:02 07/11/17 16:02 07/11/17 16:02 07/11/17 16:02 07/11/17 16:02 General appearance: Present: mild distress, A&O X 3 - Head Head exam: Present: atraumatic, normocephalic - Eye Eye exam: Present: PERRL, conjuntiva pink, sclera anicteric Pupils: Present: PERRL - Neck Neck exam general surgery: Present: supple, trachea midline. Absent: lymphadenopathy - Respiratory Respiratory exam: Present: CTAB. Absent: accessory muscle use, rales, rhonchi, wheezes - Cardiovascular Cardiovascular exam: Present: RRR, +S1, +S2. Absent: diastolic murmur, gallop, rubs, systolic murmur - GI/Abdominal GI/Abdominal exam: Present: hernia, normal bowel sounds, soft, no peritoneal signs. Absent: distended, tenderness - Extremities Exam Extremities exam: Present: warm, radial pulses palpable and symmetrical. Absent : calf tenderness, cyanotic, pedal edema - Neurological Exam Neurological exam: Present: CN II-XII intact, oriented X3, no focal deficits. Absent: pronater drift, facial droop, speech deficit - Skin Skin exam: Present: dry, intact Internal Medicine: Result - Labs CBC & Chem 7: 07/11/17 02:10 07/11/17 02:10 Labs: Short CBC 07/11/17 Range/Units 02:10 WBC 6.6 (4.3-11.1) K/mcL Hgb 10.4 L (11.5-15.4) g/dL Hct 33.0 L (35.3-44.9) % Plt Count 103 L (140-400) K/mcL Neutrophils # 1.8 (1.6-8.9) K/mcL BMP 07/11/17 02:10 Sodium 137 Potassium 3.8 Chloride 110 H Carbon Dioxide 25 BUN 11 Creatinine 0.71 Glucose 93 Calcium 8.6 Cardiac Enzymes 07/11/17 07/11/17 Range/Units 02:10 08:16 Troponin I < 0.03 < 0.03 (< 0.04) ng/mL Liver Function 07/11/17 Range/Units 02:10 Total Bilirubin 0.6 (0.3-1.0) mg/dL AST 71 H (13-39) Units/L ALT 60 H (7-52) Units/L Alkaline Phosphatase 102 (34-104) Units/L Albumin 3.6 (3.5-5.7) g/dL - ABG Interpretation ABG results: PT/INR, D-dimer PT 12.8 Seconds (9.4-12.1) H 07/10/17 13:35 D-Dimer 2491 ng/mLFEU (0-500) H 07/10/17 13:35 - Impressions Impressions Pulmonary Perfusion Imaging 07/11/17 07:10 IMPRESSION: Low Probability for Pulmonary Embolus. D/ / Jesus Faith MD / Jesus Faith MD Interpreting Provider: Jesus Faith MD Abdomen Ultrasound 07/11/17 12:30 IMPRESSION: 1. Small ascites in the left upper quadrant and right upper quadrant of the abdomen. D/ / 07/11/2017 13:34:10 Nico Walden MD / nabeel Interpreting Provider: Nico Walden MD Consult Discharge Plan - Plan Referrals: NONE,PCP [Primary Care Provider] -
[2017-07-11] MEDS ORDERED: *HR* LORazepam 2 MG/ML VIAL IVP ONE (17:25)
[2017-07-11] MEDS: *HR* Heparin 5,000 UNIT/ML VIAL SQ SCH (18:08)
[2017-07-11] MEDS: *HR* OxyCODONE Immed Rel 5 MG TABLET PO PRN ×2 (18:10→22:32)
[2017-07-11] MEDS: lamoTRIgine 100 MG TABLET PO SCH (20:33)
[2017-07-11] MEDS: *HR* HYDROmorphone 2 MG TABLET PO PRN (20:33)
[2017-07-12] MEDS: *HR* HYDROmorphone 2 MG TABLET PO PRN ×2 (02:24→12:15)
[2017-07-12] MEDS: *HR* OxyCODONE Immed Rel 5 MG TABLET PO PRN ×3 (04:18→15:43)
[2017-07-12 04:44] LABS: Mean Platelet Volume 9.6 fL (9.4-12.4)
[2017-07-12 04:46] LABS: Hematocrit 31.4 % (35.3-44.9); Hemoglobin 10.1 g/dL (11.5-15.4); Immature Platelets 2.6 % (1.1-6.1); Mean Corpuscular HGB Conc 32.2 g/dL (31.6-35.5); Mean Corpuscular Hemoglobin 31.4 pg (28.0-33.3); Mean Corpuscular Volume 97.5 fL (83.0-100.0); Red Blood Count 3.22 M/mcL (3.82-4.97); Red Cell Distribution Width 14.3 % (11.5-14.5)
[2017-07-12 04:56] LABS: BUN/Creatinine Ratio 11 (6-26); Blood Urea Nitrogen 7 mg/dL (6-20); Calcium 8.6 mg/dL (8.6-10.3); Carbon Dioxide 28 mEq/L (23-29); Chloride 106 mEq/L (98-107); Glucose 82 mg/dL (70-105); Osmolality,Calculated 281 (280-300); Potassium 3.7 mEq/L (3.5-5.1); Sodium 137 mEq/L (136-145); eGFR For African Americans > 60 (> 60); eGFR For Non-African Americans > 60 (> 60)
[2017-07-12] MEDS ORDERED: *HR* LORazepam 2 MG/ML VIAL IM STA (04:56)
[2017-07-12] MEDS ORDERED: *HR* LORazepam 2 MG/ML VIAL IVP ONE (05:49)
[2017-07-12] MEDS: *HR* Heparin 5,000 UNIT/ML VIAL SQ SCH ×2 (06:04→17:38)
[2017-07-12] MEDS: Ondansetron 4 MG/2 ML VIAL IVP PRN (09:35)
--- NOTE | 2017-07-12 11:40 | General Surgery Progress Note ---
<Mana Fernández - Last Filed: 07/12/17 12:00> Date of Encounter: 07/12/17 Time of Encounter: 11:30 - Assessment and Plan (1) Epigastric pain Current Visit: Yes Status: Acute CT demonstrated large hernia sac extending anteriorly and inferiorly containing loops of large and small bowel, with small amount of free fluid noted within the hernia sac and mild stranding noted diffusely within the mesentery. Concern for loss of domain. -Dr. Maloney reviewed CT: No indication for urgent or emergent surgical intervention at this time; no obstruction noted -Recommend evaluation at [facility] for repair of hernia- previous colon resection completed at [facility] 2 years ago -Recommend GI evalulation for ascites and cirrhosis -CEA- 2.1 May advance diet as tolerated Surgery will sign off at this time. No urgent surgical intervention indicated at this time. Thank you for allowing us to participate in the care of this patient. Please call with any further questions/concerns. (2) Cirrhosis Current Visit: Yes Status: Acute Recommend GI evaluation for cirrhosis Qualifiers: Hepatic cirrhosis type: other cirrhosis Qualified Code(s): K74.69 - Other cirrhosis of liver Subjective Patient reports: no new complaints, still having pain, no flatus, no bowel movement, afebrile Objective Vital Signs - Last 8 Hours Temp Pulse Resp BP Pulse Ox 07/12/17 06:40 98.0 F 89 16 109/69 93 Intake and Output 07/11/17 07/12/17 07/12/17 23:59 07:59 15:59 Intake Total 600 / 600 Balance 600 / 600 Intake: Oral 600 / 600 Other: Meal Lunch Percent of Meal Consumed 0% Weight 90.804 kg Patient Weight 07/12/17 23:59 Weight 90.804 kg - General physical appearance well developed, well nourished, moderate pain - Eyes normal ocular movement - ENT normal mucosa, atraumatic, normocephalic - Neck Neck exam: trachea midline - Respiratory normal respiratory effort, clear to auscultation, other (diminished bibasilar bases) - Cardiovascular Cardiovascular exam: Present: RRR - Abdomen Abdomen: Present: bowel sounds present, soft, tender (generalized) Hernia: incarcerated, incisional - Integumentary no rash, no growths, no abnormal pigmentation - Neurologic CN 2-12 grossly intact - Psychiatric oriented to time, oriented to person, oriented to place, speech is normal, memory intact, other (tearful during my visit with her ) - Labs 07/12/17 04:18 07/12/17 04:18 Diabetes panel 07/12/17 Range/Units 04:18 Sodium 137 (136-145) mEq/L Potassium 3.7 (3.5-5.1) mEq/L Chloride 106 (98-107) mEq/L Carbon Dioxide 28 (23-29) mEq/L BUN 7 (6-20) mg/dL Creatinine 0.66 (0.60-1.20) mg/dL Glucose 82 (70-105) mg/dL Calcium 8.6 (8.6-10.3) mg/dL Calcium panel 07/12/17 Range/Units 04:18 Calcium 8.6 (8.6-10.3) mg/dL Pituitary panel 07/12/17 Range/Units 04:18 Sodium 137 (136-145) mEq/L Potassium 3.7 (3.5-5.1) mEq/L Chloride 106 (98-107) mEq/L Carbon Dioxide 28 (23-29) mEq/L BUN 7 (6-20) mg/dL Creatinine 0.66 (0.60-1.20) mg/dL Glucose 82 (70-105) mg/dL Calcium 8.6 (8.6-10.3) mg/dL Adrenal panel 07/12/17 Range/Units 04:18 Sodium 137 (136-145) mEq/L Potassium 3.7 (3.5-5.1) mEq/L Chloride 106 (98-107) mEq/L Carbon Dioxide 28 (23-29) mEq/L BUN 7 (6-20) mg/dL Creatinine 0.66 (0.60-1.20) mg/dL Glucose 82 (70-105) mg/dL Calcium 8.6 (8.6-10.3) mg/dL Consult Discharge Plan - Plan Referrals: NONE,PCP [Primary Care Provider] - - Attending Attestation For this encounter, I have reviewed the TASSEL CLIPPER or PA documentation, treatment plan, and medical decision making; and I have had face to face time with this patient. <Micha Maloney - Last Filed: 07/12/17 14:43> Date of Encounter: 07/12/17 Objective Vital Signs - Last 8 Hours Temp Pulse Resp BP Pulse Ox 07/12/17 14:00 98.5 F 83 16 133/82 97 07/12/17 11:51 98.5 F 84 16 119/77 92 Intake and Output 07/11/17 07/12/17 07/12/17 23:59 07:59 15:59 Intake Total 600 / 600 Balance 600 / 600 Intake: Oral 600 / 600 Other: Meal Lunch Percent of Meal Consumed 0% Weight 90.804 kg Patient Weight 07/12/17 23:59 Weight 90.804 kg - Labs 07/12/17 04:18 07/12/17 04:18 Diabetes panel 07/12/17 Range/Units 04:18 Sodium 137 (136-145) mEq/L Potassium 3.7 (3.5-5.1) mEq/L Chloride 106 (98-107) mEq/L Carbon Dioxide 28 (23-29) mEq/L BUN 7 (6-20) mg/dL Creatinine 0.66 (0.60-1.20) mg/dL Glucose 82 (70-105) mg/dL Calcium 8.6 (8.6-10.3) mg/dL Calcium panel 07/12/17 Range/Units 04:18 Calcium 8.6 (8.6-10.3) mg/dL Pituitary panel 07/12/17 Range/Units 04:18 Sodium 137 (136-145) mEq/L Potassium 3.7 (3.5-5.1) mEq/L Chloride 106 (98-107) mEq/L Carbon Dioxide 28 (23-29) mEq/L BUN 7 (6-20) mg/dL Creatinine 0.66 (0.60-1.20) mg/dL Glucose 82 (70-105) mg/dL Calcium 8.6 (8.6-10.3) mg/dL Adrenal panel 07/12/17 Range/Units 04:18 Sodium 137 (136-145) mEq/L Potassium 3.7 (3.5-5.1) mEq/L Chloride 106 (98-107) mEq/L Carbon Dioxide 28 (23-29) mEq/L BUN 7 (6-20) mg/dL Creatinine 0.66 (0.60-1.20) mg/dL Glucose 82 (70-105) mg/dL Calcium 8.6 (8.6-10.3) mg/dL - Attending Attestation I have personally performed a face to face evaluation on this patient. I have reviewed and agree with the care plan. History and Exam by me shows: The patient was seen and evaluated on morning rounds. There is no indication for acute repair of her hernia. I do not feel that the hernia can be repaired at this institution. She may require component separation for successful abdominal wall reconstruction. I recommend she follow-up with her primary surgeon. We will sign off. Micha Maloney MD FACS
--- NOTE | 2017-07-12 13:27 | Gastroenterology Consult Note ---
<Sheyla Lyons - Last Filed: 07/12/17 13:25> Date of Encounter: 07/12/17 Time of Encounter: 09:00 - Assessment and plan (1) Epigastric pain Status: Acute Assessment and plan: Continue PPI. Will proceed with EGD today. (2) Cirrhosis Status: Acute Assessment and plan: Will order further workup for cirrhosis. MELD NA score 8. Pt denies ETOH or tylenol. EGD to evaluate esophageal varices. Qualifiers: Hepatic cirrhosis type: other cirrhosis Qualified Code(s): K74.69 - Other cirrhosis of liver - Time Spent With Patient Total time spent is greater than 50% in coordination of care (as documented) at patient's floor/unit and/or counseling patient: GI History of Present Illness - Data of Consult Patient: new to practice Consult date: 07/12/17 Requesting Physician: Carolyn Roberson CNP - Consult Narrative Reason for consult: cirrhosis History of present illness: 56 y F with PMHx of colorectal cancer s/p hemicolectomy, myocardial infarction approx. 10 years ago, thyroid disease, and TIA. She presents for chronic nausea x1 month. She also complains of severe epigastric pain. She reports some blood streaked vomitous and stools. She has diarrhea and reports occasionally has incontinence. She has a large hernia following colon resection two years ago for Stage II colorectal cancer. She denies weight loss. She was also complaining of chest pain, and shortness of breath on admission. She was seen by surgery who has signed off. She had a ultrasound of the RUQ which showed small ascites in the left upper quadrant and RUQ aof the abdomen. CT of the abdomen showed cirrhosis and underlying poratl hypertension. Showed WBC 6.4 hemoglobin 10.1 platelet count 83 INR 1.2 sodium 137 potassium 3.7 BUN is 7 creatinine 0.66 AST of 71 ALT of 60 alkaline phosphatase 102 CEA 2.1. MELD NA: 8 Colonoscopy: 2017 [place] EGD: unsure NSAIDS/ASA: denies Anticoagulants: heparin 0600 Past Med Surg Social Fam HX - Past Medical History Medical history: arthritis, cancer, cirrhosis, myocardial infarction, thyroid disease, TIA, other Psychiatric history: panic disorder - Past Surgical History Surgical History: , orthopedic, other - Social History Smoking Status: Current every day smoker Smokeless Tobacco Status: No Alcohol use: none Drug use: none Review of Systems: GI: as per [place] GENERAL: denies fever, has some chills EYES: denies yellow discoloration ENT: pain with swallowing and difficulty swallowing CARDIO: see HPI RESP: See HPI : denies change in color of urine NEURO: weakness HEME: Denies any bruising MS: denies joint pain, joint swelling or back pain. DERM: denies rash or itching PSYCH: history of anxiety and depression - Constitutional Vitals: Temp Pulse Resp BP Pulse Ox 98.5 F 84 16 119/77 92 07/12/17 11:51 07/12/17 11:51 07/12/17 11:51 07/12/17 11:51 07/12/17 11:51 Exam: CONSTITUTIONAL:~alert, no acute distress.~HEAD:~normocephalic.~EYES:~no jaundice.~NECK:~no obvious swelling.~HEART:~regular rate and rhythm, murmur noted.~LUNGS:~bilateral good air entry.~ABDOMEN:~non distended, soft, tender, large hernia noted to LLQ RECTAL EXAM:~Deferred.~EXTREMITIES:~no clubbing, cyanosis or edema.~SKIN:~pallor noted, no stigmata of chronic liver disease.~ NEUROLOGIC:~no obvious focal defect.~~~~ Results - Labs CBC & Chem 7: 07/12/17 04:18 07/12/17 04:18 Labs: Last Result Calcium 8.6 mg/dL (8.6-10.3) 07/12/17 04:18 Troponin I < 0.03 ng/mL (< 0.04) 07/11/17 08:16 Entire Visit Hgb 10.1 g/dL (11.5-15.4) L 07/12/17 04:18 Hct 31.4 % (35.3-44.9) L 07/12/17 04:18 PT 12.8 Seconds (9.4-12.1) H 07/10/17 13:35 Total Bilirubin 0.6 mg/dL (0.3-1.0) 07/11/17 02:10 AST 71 Units/L (13-39) H 07/11/17 02:10 ALT 60 Units/L (7-52) H 07/11/17 02:10 Lipase 73 Units/L (11-82) 07/11/17 08:16 Carcinoembryonic Ag 2.1 ng/mL (Less than 5.0) 07/12/17 04:18 - ABG ABG results: PT/INR, D-dimer PT 12.8 Seconds (9.4-12.1) H 07/10/17 13:35 D-Dimer 2491 ng/mLFEU (0-500) H 07/10/17 13:35 - Impressions Impressions Abdomen Ultrasound 07/11/17 12:30 IMPRESSION: 1. Small ascites in the left upper quadrant and right upper quadrant of the abdomen. D/ / 07/11/2017 13:34:10 Nico Walden MD / nabeel Interpreting Provider: Nico Walden MD Consult Discharge Plan - Plan Referrals: NONE,PCP [Primary Care Provider] - <Osman Uriarte - Last Filed: 07/19/17 10:35> Date of Encounter: 07/12/17 - Time Spent With Patient Total time spent is greater than 50% in coordination of care (as documented) at patient's floor/unit and/or counseling patient: GI History of Present Illness - Data of Consult Requesting Physician: Carolyn Roberson CNP - Consult Narrative History of present illness: Ms. Lorenz is a 56 year old female - Constitutional Vitals: Temp Pulse Resp BP Pulse Ox 98.3 F 89 17 133/80 95 07/12/17 19:06 07/12/17 19:06 07/12/17 19:06 07/12/17 19:06 07/12/17 19:06 Results - Labs CBC & Chem 7: 07/12/17 04:18 07/12/17 04:18 Labs: Last Result Calcium 8.6 mg/dL (8.6-10.3) 07/12/17 04:18 Iron 130 mcg/dL (50-170) 07/12/17 13:36 % Saturation 25 % (15-50) 07/12/17 13:36 Transferrin 366 mg/dL (203-362) H 07/12/17 13:36 Troponin I < 0.03 ng/mL (< 0.04) 07/11/17 08:16 Hep Bs Ag Confirmation POSITIVE (Non Confirmed) A 07/12/17 13:36 Entire Visit Hgb 10.1 g/dL (11.5-15.4) L 07/12/17 04:18 Hct 31.4 % (35.3-44.9) L 07/12/17 04:18 PT 12.8 Seconds (9.4-12.1) H 07/10/17 13:35 Total Bilirubin 0.6 mg/dL (0.3-1.0) 07/11/17 02:10 AST 71 Units/L (13-39) H 07/11/17 02:10 ALT 60 Units/L (7-52) H 07/11/17 02:10 Qxjkg-[id number]-[id number] 185 mg/dL (90-200) 07/12/17 13:36 Ceruloplasmin 25 mg/dL (17-54) 07/12/17 13:36 Lipase 73 Units/L (11-82) 07/11/17 08:16 Carcinoembryonic Ag 2.1 ng/mL (Less than 5.0) 07/12/17 04:18 - ABG ABG results: PT/INR, D-dimer PT 12.8 Seconds (9.4-12.1) H 07/10/17 13:35 D-Dimer 2491 ng/mLFEU (0-500) H 07/10/17 13:35 - Attending Attestation I have personally performed a face to face evaluation on this patient. I have reviewed and agree with the care plan. History and Exam by me shows:
[2017-07-12 14:08] LABS: % Iron Saturation 25 % (15-50); Iron 130 mcg/dL (50-170); Transferrin 366 mg/dL (203-362)
[2017-07-12] MEDS ORDERED: *HR* Propofol 200 MG/20 ML VIAL IVP ONE (14:12)
--- NOTE | 2017-07-12 14:14 | Anesthesia Evaluation PreOp ---
Date of Encounter: 07/12/17 Time of Encounter: 14:10 - Past History Planned Operation: EGD Cardiac History: MA (10-12 yrs ago, no stents, no current angina) Pulmonary History: Smoker, Pack/yr (5) HOSPICE MUSIC THERAPY History: Denies Any Significant HX Other Medical History: Thyroid Anesthesia History: No Prior Anesthetic Complications, Past Anesthesia : No Alcohol Use: none Drug use: none Medications and Allergies Levothyroxine [Synthroid] 50 mcg PO 0630 04/05/15 [History] Docusate Sodium [Stool Softener] 100 mg PO DAILY 07/11/17 [History] Gabapentin [Neurontin] 600 mg PO TID 07/11/17 [History] Mirtazapine [Remeron] 15 mg PO HS 07/11/17 [History] Ondansetron [Zofran] 8 mg PO Q6H 07/11/17 [History] Pantoprazole Sodium 40 mg PO DAILY 07/11/17 [History] Paroxetine [Paxil] 20 mg PO TID 07/11/17 [History] Propranolol [Inderal] 20 mg PO TID 07/11/17 [History] Ranitidine HCl [Heartburn Relief] 150 mg PO BID 07/11/17 [History] Spironolactone [Aldactone] 25 mg PO DAILY 07/11/17 [History] clonazePAM [Klonopin] 0.5 mg PO BID 07/11/17 [History] lamoTRIgine [Lamotrigine] 200 mg PO BID 07/11/17 [History] rOPINIRole [Requip] 0.25 mg PO DAILY 07/11/17 [History] 3 Allergy/AdvReac Type Severity Reaction Status Date / Time aspirin [ASA] Allergy Hives Verified 07/07/15 16:08 Iodinated Contrast- Oral and Allergy Anaphylaxis Verified 07/10/17 13:12 IV Dye NSAIDS (Non-Steroidal AdvReac Difficulty Verified 04/05/15 01:09 Anti-Inflamma Breathing - Meds/Allergy Pre-op Review Medications Reviewed: Yes Allergies Reviewed: Yes Beta Blockers on Current Med List: Yes If Beta Blockers taken, Date/Time (Last Dose taken): held on floor Anesthesia Results - Labs 07/12/17 04:18 07/12/17 04:18 Anesthesia Exam Selected Entries 07/12/17 14:00 Temperature 98.5 F Pulse Rate 83 Respiratory Rate 16 Blood Pressure 133/82 O2 Sat by Pulse Oximetry 97 Weight: 91kg NPO (# of Hours): 8 - HEENT Pupil (Motor): EOMI Mallampati: II Teeth: Missing Oral Opening: Greater than 3 - HOSPICE MUSIC THERAPY LOC: Oriented HOSPICE MUSIC THERAPY Motor: Normal RUE, Normal LUE, Normal RLE, Normal LLE, Normal Face HOSPICE MUSIC THERAPY Sensory: Normal: RUE, LUE, RLE, LLE, Face - Cardiac Rhythm: Regular Murmur: Systolic (grade 3) JVD: No Carotid Bruit: No - Pulmonary Breath Sounds: bilateral Clear Respiratory Effort: Symmetrical Anesthesia Assess/Plan ASA Score: 3 Modified [place] Scale for Level of Consciousness: Cooperative, oriented, and tranquil Anesthetic Plan: MAC Monitoring Plan: Standard Monitors Recovery Plan: Other (agrees to MAC)
[2017-07-12] MEDS: Sucralfate 1 GM TABLET PO SCH ×3 (15:34→15:43)
[2017-07-12] MEDS: Gabapentin 300 MG CAPSULE PO SCH ×2 (15:35→15:42)
[2017-07-12] MEDS: Pantoprazole 40 MG VIAL IVP SCH (15:43)
[2017-07-12] MEDS: clonazePAM 0.5 MG TABLET PO SCH (15:58)
--- NOTE | 2017-07-12 17:27 | Electrocardiograph Report ---
[place] [id number] Test Date: 2017-07-10 Pat Name: Elizabeth Lorenz Department: 104 Room: 3B44 Gender: F [employer]: : 1960 Requested By: Samy Morales Order Number: [id number] Reading MD: Osbaldo Magana Measurements Intervals [place] Rate: 92 P: 24 AK: 154 QRS: 22 QRSD: 98 T: 51 QT: 355 QTc: 405 Interpretive Statements SINUS RHYTHM Electronically Signed On 07-12-2017 17:25:24 EST by Osbaldo Magana
--- NOTE | 2017-07-12 18:00 | Internal Med Progress Note ---
Date of Encounter: 07/12/17 Time of Encounter: 16:00 - Assessment and plan (1) Epigastric pain Current Visit: Yes Status: Acute Assessment and plan: presented with ABD pain for 2 weeks. Lipase 128 and normalized. History remote Kaylene. ABD CT showed cirrhosis with portal hypertension, diverticulosis with no definite evidence of acute diverticulitis, large ventral hernia containing loops of large and small bowel, no evidence of obstruction. Of note the CT was limited in evaluation due to ascites. Evaluated by general surgery who did not feel there was an acute surgical need at this time although surgery did recommend eventual follow-up with [facility] for hernia repair. Pain control has been an issue with shortage of IV Dilaudid and morphine. Discussed with pharmacy multiple times; final pain regimen will consist of PRN OxyIR and sublingual morphine. Keep NPO as long as she is having abdominal pain. CEA pending. (2) Colon cancer Current Visit: Yes Status: Acute Assessment and plan: per. S/p resection at [facility] [address]. [address] with evidence of ventral hernia. Symptomatic with persistent and uncontrolled abdominal pain. Discussed with general surgery on 07/12 and if surgery is going to be considered the patient will need to be transferred to [facility]. His cussed with patient at length on 07/12 and she is agreeable to transfer however she was waiting until tomorrow as family member in the ICU is terminal. Discussed with [facility] transfer center; oncoming hospitalist will need to call transfer center to facilitate transfer on 07/14. Qualifiers: Colon location: unspecified part of colon Qualified Code(s): C18.9 - Malignant neoplasm of colon, unspecified (3) Anxiety Current Visit: Yes Status: Acute Assessment and plan: per hx. 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 Suspect this is contributing to uncontrolled pain. Continue home Xanax. One-time dose IV Ativan (4) Cirrhosis Current Visit: Yes Status: Acute Assessment and plan: per hx. Denies Etoh/tylenol use. ABD CT with evidence of cirrhosis and portal hypertension. RUQ US with mild ascites and left and right upper quadrant. Evaluated by IR who noted no fluid to be removed. EGD shows grade 1 varices in the lower esophagus, mild portal hypertension. Add BB for portal hypertension. GI following Qualifiers: Hepatic cirrhosis type: other cirrhosis Qualified Code(s): K74.69 - Other cirrhosis of liver (5) DVT prophylaxis Current Visit: Yes Status: Acute Assessment and plan: heparin - Subjective Interval history: Seen and examined at bedside; she still complaining of persistent abdominal pain. Only minimally improved from yesterday's exam. This with her at length the possibility of transferring to [facility]. Patient is agreeable however she would like to wait until tomorrow as her [id number]-[id number]'s in the ICU and is terminal. Tolerating diet at this time. No loose stools. - Constitutional Vitals: Temp Pulse Resp BP Pulse Ox 97.9 F 75 16 125/78 97 07/12/17 15:12 07/12/17 15:12 07/12/17 15:12 07/12/17 15:12 07/12/17 15:12 General appearance: Present: mild distress, A&O X 3, morbidly obese - Head Head exam: Present: atraumatic, normocephalic - Eye Eye exam: Present: PERRL, conjuntiva pink, sclera anicteric Pupils: Present: PERRL - Neck Neck exam general surgery: Present: supple, trachea midline. Absent: lymphadenopathy - Respiratory Respiratory exam: Present: CTAB. Absent: accessory muscle use, rales, rhonchi, wheezes - Cardiovascular Cardiovascular exam: Present: RRR, +S1, +S2. Absent: diastolic murmur, gallop, rubs, systolic murmur - GI/Abdominal GI/Abdominal exam: Present: hernia, normal bowel sounds, soft, no peritoneal signs. Absent: distended, tenderness - Extremities Exam Extremities exam: Present: warm, radial pulses palpable and symmetrical. Absent : calf tenderness, cyanotic, pedal edema - Neurological Exam Neurological exam: Present: CN II-XII intact, oriented X3, no focal deficits. Absent: pronater drift, facial droop, speech deficit - Skin Skin exam: Present: dry, intact Internal Medicine: Result - Labs CBC & Chem 7: 07/12/17 04:18 07/12/17 04:18 Labs: Short CBC 07/12/17 Range/Units 04:18 WBC 6.4 (4.3-11.1) K/mcL Hgb 10.1 L (11.5-15.4) g/dL Hct 31.4 L (35.3-44.9) % Plt Count 83 L (140-400) K/mcL BMP 07/12/17 04:18 Sodium 137 Potassium 3.7 Chloride 106 Carbon Dioxide 28 BUN 7 Creatinine 0.66 Glucose 82 Calcium 8.6 - ABG Interpretation ABG results: PT/INR, D-dimer PT 12.8 Seconds (9.4-12.1) H 07/10/17 13:35 D-Dimer 2491 ng/mLFEU (0-500) H 07/10/17 13:35 - Impressions Impressions Abdomen Ultrasound 07/11/17 12:30 IMPRESSION: 1. Small ascites in the left upper quadrant and right upper quadrant of the abdomen. D/ / 07/11/2017 13:34:10 Nico Walden MD / nabeel Interpreting Provider: Nico Walden MD Consult Discharge Plan - Plan Referrals: NONE,PCP [Primary Care Provider] -
[2017-07-12 19:08] VITALS: BP 133/80
[2017-07-13 05:53] LABS: Hepatitis A Antibody IgM Nonreactive (Nonreactive); Hepatitis B Core IgM Nonreactive (Nonreactive); Hepatitis C Virus Antibody Nonreactive (Nonreactive)
[2017-07-13 06:43] LABS: Hepatitis B Surface Antigen Reactive (Nonreactive)
[2017-07-14 08:29] LABS: ANA IgG by ELISA DETECTED (None Detected); Immunoglobulin G Subclass 1 1250 mg/dL (240-1118); Immunoglobulin G Subclass 2 74 mg/dL (124-549); Immunoglobulin G Subclass 3 34 mg/dL (21-134); Immunoglobulin G Subclass 4 15 mg/dL (1-123)
[2017-07-14 08:30] LABS: AFP Tumor Marker Non-Pregnant 7 ng/mL (0-9); Immunoglobulin A (CELIAC) 237 mg/dL (68-408)
[2017-07-14 08:37] LABS: Tissue Transglutaminase IgA 0 U/mL (0-3)
[2017-07-15 17:23] LABS: A1A SZ Specimen WHOLE BLOOD; Alpha-1-Antitrypsin S Allele NEGATIVE; Alpha-1-Antitrypsin Z Allele NEGATIVE
[2017-07-18 08:00] LABS: Alpha-1-Antitrypsin 185 mg/dL (90-200)
[2017-07-18 08:01] LABS: ANA IgG IFA Titer <1:80 (<1:80)
== END 2017-07-12 19:05 | disposition left against medical advice (07) ==
LOC: EMEROO 13:07 → 3BNU 13:07
PROVIDERS: ADMIT Internal Medicine; ATTEND Registered Nurse
PROC: ENDOEBX (2017-07-12 14:00)